=== PATIENT | female | born 1960 | race Caucasian/White ===

== ENCOUNTER 2017-03-12 19:40 | Emergency (ER) | payer OTHER ==
[~2017-03-12] VITALS: Ht 157.5 cm; Wt 65.0 kg
[~2017-03-12 19:40] MED LIST: ADDERALL 30 MG30 MG PO; ADDERALL XR30 MG PO; ADDERALL10 MG PO; ADDERALL20 MG PO; ALENDRONATE SOD70 MG PO; AMITRIPTYLINE H50 MG PO; Ambien PO; BACTRIM,SEPT1 TABLET PO; CALTRATE 6001 TABLE2 PO; CLONAZEPAM0.5 MG PO; CLONAZEPAM1 M1 PO; Concerta PO; Coumadin Daily Dose PO; DICLOFENAC SODI50 MG PO; ELAVIL50 MG PO; FOSAMAX70 MG PO; Feosol PO; HYDROXYZINE PAM25 MG PO; KEFLEX500 MG PO; LEVOTHYROXINE50 MCG PO; LISINOPRIL10 MG PO; MACROBID100 MG PO; MORPHINE SULFAT15 M1 PO; MOTRIN800 MG PO; NASACORT AQ16.5 GM NS; OMEPRAZOLE20 M3 PO; PERPHEN AMITRI PO; PERPHENAZINE4 MG PO; PERPHENAZINE8 MG PO; PHENERGAN12.5 M1 PO; PRAVASTATIN SOD20 MG PO; PRILOSEC20 MG PO; PRO AIR; PROAIR HFA8.5 GM IH; PROPRANOLOL HCL80 M1 PO; PROVENTIL17 GM IH; Proventil,Ventolin H IH; RANITIDINE HCL150 MG PO; SERTRALINE HCL50 MG PO; SILVADENE20 GM TP; SINGULAIR10 MG PO; STRATTERA40 MG PO; TENEX1 MG PO; TRAMADOL HCL50 MG PO; TYLENOL WITH C1 EACH PO; Tylenol/Codeine #3 PO; ZOLOFT50 MG PO; Zantac PO; Zoloft PO; [UNRECOGNIZED DRUG - OTHER] PO
[2017-03-12] MEDS ORDERED: NORCO 5/3251 TABLET PO (21:01)
[2017-03-12 21:20] VITALS: BP 139/82
== END 2017-03-12 21:23 | disposition home or self-care (01) ==
LOC: RME 19:40 → EME 19:40 → RME 21:23
PROC: 2W0DX1Z Change Splint on Left Lower Arm (ICD-10-PCS; principal; 2017-03-12)
DX: S50.12XA Contusion of left forearm, initial encounter (principal); W01.0XXA Fall on same level from slipping, tripping and stumbling without subsequent striking against object, initial encounter; Y92.007 Garden or yard of unspecified non-institutional (private) residence as the place of occurrence of the external cause; J44.9 Chronic obstructive pulmonary disease, unspecified; J45.909 Unspecified asthma, uncomplicated; I10 Essential (primary) hypertension; E78.5 Hyperlipidemia, unspecified; K21.9 Gastro-esophageal reflux disease without esophagitis; F20.9 Schizophrenia, unspecified; F31.9 Bipolar disorder, unspecified; F90.9 Attention-deficit hyperactivity disorder, unspecified type; Z87.891 Personal history of nicotine dependence; Z88.0 Allergy status to penicillin; Z96.652 Presence of left artificial knee joint
CPT/HCPCS: 99281; 99283

== ENCOUNTER 2017-04-22 11:00 | Emergency (ER) | payer OTHER ==
[~2017-04-22] VITALS: Ht 157.5 cm; Wt 66.7 kg
[~2017-04-22 11:00] MED LIST changes: +NORCO 5/3251 TABLET PO
[2017-04-22 14:35] LABS: EOSINOPHIL COUNT 0.1 K/uL (0-0.3); HEMATOCRIT 43.7 % (36.0-46.0); IMMATURE GRANULOCYTE (%) 0.4 % (0.0-0.7); INSTRUMENT ABS NEUTROPHIL CT 5.4 K/uL; LYMPHOCYTE COUNT 1.9 K/uL (1.0-2.8); MCH 28.7 PG (29.0-34.0); MCHC 31.8 G/DL (30.0-36.0); MCV 90.1 FL (83-99); MEAN PLAT.VOLUME 12.2 uM^3 (9.5-12.4); MONOCYTE (%) 6.6 % (3-12); MONOCYTE COUNT 0.5 K/uL (0-0.8); NEUTROPHIL (%) 67.9 % (45-76); NEUTROPHIL COUNT 5.4 K/uL (1.8-6.4); PLATELET COUNT 152 K/uL (156-360); RBC DIS.WIDTH-CV 13.2 % (11.8-14.6); RBC DIS.WIDTH-SD 43.4 % (39-53); RED BLOOD COUNT 4.85 M/uL (3.80-5.20)
[2017-04-22 14:43] LABS: CHLORIDE 106 mEq/L (99-109); SODIUM 142 mEq/L (136-147)
[2017-04-22 14:44] LABS: GLUCOSE 93 mg/dL (70-99)
[2017-04-22 14:46] LABS: ANION GAP 11 MEQ/L (2-14)
[2017-04-22 14:48] LABS: GFR ESTIMATE (CALCULATED) > 59 mL/min/
[2017-04-22 14:49] LABS: UREA NITROGEN (BUN) 12 mg/dL (9-23)
[2017-04-22] MEDS ORDERED: CIPRO500 MG PO (15:05)
[2017-04-22] MEDS ORDERED: BACTRIM,SEPT1 TABLET PO (15:05)
[2017-04-22] MEDS ORDERED: NORCO 5/3251 TABLET PO (15:09)
[2017-04-22 15:26] VITALS: BP 178/88
== END 2017-04-22 15:27 | disposition home or self-care (01) ==
LOC: EME 11:00
PROVIDERS: Physician Assistant
DX: S41.101A Unspecified open wound of right upper arm, initial encounter (principal); L08.9 Local infection of the skin and subcutaneous tissue, unspecified; J44.9 Chronic obstructive pulmonary disease, unspecified; E78.5 Hyperlipidemia, unspecified; I10 Essential (primary) hypertension; M81.0 Age-related osteoporosis without current pathological fracture; K21.9 Gastro-esophageal reflux disease without esophagitis; F90.9 Attention-deficit hyperactivity disorder, unspecified type; F31.9 Bipolar disorder, unspecified; F20.9 Schizophrenia, unspecified; M19.90 Unspecified osteoarthritis, unspecified site; Z86.14 Personal history of Methicillin resistant Staphylococcus aureus infection; Z96.652 Presence of left artificial knee joint; Z87.891 Personal history of nicotine dependence
CPT/HCPCS: 80048; 83605; 85025; 87040; 87070; 87075; 87076; 87205; 99281; 99284

== ENCOUNTER 2017-05-16 09:46 | Emergency (ER) | payer OTHER ==
[~2017-05-16] VITALS: Ht 157.5 cm; Wt 65.8 kg
[~2017-05-16 09:46] MED LIST changes: +CIPRO500 MG PO
[2017-05-16] MEDS ORDERED: CLEOCIN300 MG PO (11:14)
[2017-05-16 11:25] VITALS: BP 130/80
== END 2017-05-16 11:26 | disposition home or self-care (01) ==
LOC: EME 09:46
DX: L03.113 Cellulitis of right upper limb (principal); L03.319 Cellulitis of trunk, unspecified; Z86.14 Personal history of Methicillin resistant Staphylococcus aureus infection; K21.9 Gastro-esophageal reflux disease without esophagitis; J44.9 Chronic obstructive pulmonary disease, unspecified; F90.9 Attention-deficit hyperactivity disorder, unspecified type; E78.5 Hyperlipidemia, unspecified; I10 Essential (primary) hypertension; F31.9 Bipolar disorder, unspecified; F20.9 Schizophrenia, unspecified; Z96.652 Presence of left artificial knee joint; Z87.891 Personal history of nicotine dependence
CPT/HCPCS: 99281; 99282

== ENCOUNTER → 2017-12-10 | Outpatient (CLI) | payer OTHER ==
[~2017-12-10] MED LIST changes: +CLEOCIN300 MG PO
== END | disposition home or self-care (01) ==
LOC: CDC 10:33
DX: Z01.810 Encounter for preprocedural cardiovascular examination (principal); G56.01 Carpal tunnel syndrome, right upper limb; M25.531 Pain in right wrist; M19.031 Primary osteoarthritis, right wrist; R94.31 Abnormal electrocardiogram [ECG] [EKG]
CPT/HCPCS: 93000